=== PATIENT | male | born 1945 | race Caucasian/White ===

== ENCOUNTER 2020-02-07 10:19 | Outpatient (CLI) | payer MEDICARE ==
[~2020-02-07 10:19] MED LIST: AMOX1TAB12 PO; ASPI-496 PO; BLOOD PRESSURE MED; LISI-466 PO; LOVA10TA PO; LOVA40TA2 PO; MULT-464 PO
== END 2020-02-07 23:59 | disposition home or self-care (01) ==
LOC: CFH 10:19
PROVIDERS: ATTEND Nurse Practitioner
DX: Z12.2 Encounter for screening for malignant neoplasm of respiratory organs (principal); F17.211 Nicotine dependence, cigarettes, in remission; I25.10 Atherosclerotic heart disease of native coronary artery without angina pectoris; R91.8 Other nonspecific abnormal finding of lung field
CPT/HCPCS: G0297